=== PATIENT | female | born 1970 | race Caucasian/White ===

== ENCOUNTER → 2023-05-25 | Outpatient (CLI) | payer BC ==
--- NOTE | 2023-06-21 11:18 | MM ---
EXAM: MG 3D screening mammo w/cad DATE OF EXAM: 05/25/2023 8:10 AM COMPARISON STUDIES: 12/12/2016 Bilateral Screening Mammogram, [place]. PATIENT HISTORY: Female, 52 years old with history of Z12.31 SCREENING MAMMO; , Menarche at age 14. First Full-Term at age 28. Hysterectomy at age 39. Patient has history of breast feeding. , RISK CALCULATION: Sheila 5 year model risk: 1.1%. NCI Lifetime model risk: 9.7%. TISSUE DENSITY: Scattered fibroglandular densities FINDINGS: There is no suspicious group of microcalcifications or new suspicious mass in either breast. ASSESSMENT: 1 - Negative RECOMMENDATION: 1. Screening Mammogram Bilateral in 1 Year . COMMENTS: [facility] will attempt to contact patient to return for supplemental views and ultrasound if indicated. Patient should continue monthly self-breast exams. A clinical breast exam by your physician is recommended on an annual basis. This exam should not preclude additional follow-up of suspicious palpable abnormalities. Note on Sheila scores and lifetime risk: 1. A Sheila score greater than 3% is considered moderate risk. If this is the case, consider specialist referral to assess eligibility for a risk reducing agent. 2. If overall lifetime risk for the development of breast cancer is 20% or higher, the patient may qualify for future screening with alternating mammogram and breast MRI. CHARLES
== END | disposition home or self-care (01) ==
LOC: RADMAMWWP 07:55
PROVIDERS: ATTEND Nurse Practitioner Women's Health
DX: Z12.31 Encounter for screening mammogram for malignant neoplasm of breast (principal)
CPT/HCPCS: 77063; 77067

== ENCOUNTER → 2024-12-20 | Outpatient (CLI) | payer OTHER ==
[2024-12-21 02:54] LABS: Basophils # (A) 0.07 X 10*3/uL (0.00-0.10); Basophils % (A) 0.8 %; Eosinophils # (A) 0.17 X 10*3/uL (0.04-0.35); Eosinophils % (A) 1.8 %; HCT 45.2 % (37.2-46.3); HGB 14.8 g/dL (12.0-15.0); MCH 30.6 pg (27.0-32.0); MCHC 32.7 g/dL (32.0-37.0); MCV 93.4 FL (80.0-97.0); Mean Platelet Volume 10.8 FL (9.5-12.2); Monocytes % (A) 7.5 %; NRBC Per 100 WBC 0 X 10*3/uL (0.00-0.01); Neutrophils # (A) 5.55 X 10*3/uL (1.80-7.70); Neutrophils % (A) 59.6 %; Platelet Count 278 X 10*3/uL (140-440); RBC 4.84 X 10*6/uL (4.10-5.20); RDW 14.1 % (11.5-14.5); WBC 9.32 X 10*3/uL (4.50-10.00)
[2024-12-21 02:56] LABS: BUN/Creat Ratio 20.44 Ratio (12.00-20.00); Blood Urea Nitrogen 18.4 mg/dL (9.0-27.0); Calcium 9.3 mg/dL (8.7-10.3); Chloride 103 mmol/L (96-109); Glucose 90 mg/dL (70-110); Potassium 4.8 mmol/L (3.5-5.5); Sodium 136 mmol/L (135-145)
== END | disposition home or self-care (01) ==
LOC: LABWHC1 15:53
PROVIDERS: ATTEND Urology
DX: Z01.812 Encounter for preprocedural laboratory examination (principal)
CPT/HCPCS: 36415; 80048; 85025; 87086

== ENCOUNTER → 2025-01-16 | Outpatient (CLI) | payer OTHER ==
--- NOTE | 2025-01-16 12:17 | MM ---
Reason for Exam: Screening (asymptomatic). Last mammogram was performed 1 year(s) and 7 month(s) ago. Patient History: Menarche at age 14. First Full-Term at age 28. Hysterectomy at age 39. Patient has history of breast feeding. Patient used Hormonal Contraceptives for 10 years. Risk Values: Sheila 5 year model risk: 1.2%. NCI Lifetime model risk: 9.4%. Prior Study Comparison: 12/12/2016 Bilateral Screening Mammogram, [place]. 05/25/2023 Bilateral MG 3D screening mammo w/cad, [facility]. Tissue Density: The breasts are heterogeneously dense, which may obscure small masses. Findings: Analyzed By CAD. There is no suspicious group of microcalcifications or new suspicious mass in either breast. Stable chronic lymph node in the right breast. Overall Assessment: Benign, BI-RAD 2 Management: Screening Mammogram of both breasts in 1 year. . Patient should continue monthly self-breast exams. A clinical breast exam by your physician is recommended on an annual basis. This exam should not preclude additional follow-up of suspicious palpable abnormalities. Note on Sheila scores and lifetime risk: 1. A Sheila score greater than 3% is considered moderate risk. If this is the case, consider specialist referral to assess eligibility for a risk reducing agent. 2. If overall lifetime risk for the development of breast cancer is 20% or higher, the patient may qualify for future screening with alternating mammogram and breast MRI. [facility], , 01/16/2025 12:14 PM. Electronically signed and approved by: Erick Velasquez M.D. Radiolog[facility]
== END | disposition home or self-care (01) ==
LOC: RADMAMWWP 11:54
PROVIDERS: ATTEND Obstetrics & Gynecology
DX: Z12.31 Encounter for screening mammogram for malignant neoplasm of breast (principal); R92.333 Mammographic heterogeneous density, bilateral breasts; Z92.0 Personal history of contraception
CPT/HCPCS: 77063; 77067

== ENCOUNTER → 2025-01-22 | Outpatient (CLI) | payer OTHER ==
[2025-01-22 18:41] LABS: Basophils # (A) 0.06 X 10*3/uL (0.00-0.10); Basophils % (A) 0.7 %; Eosinophils # (A) 0.14 X 10*3/uL (0.04-0.35); Eosinophils % (A) 1.7 %; HCT 46.2 % (37.2-46.3); HGB 14.7 g/dL (12.0-15.0); Lymphocytes # (A) 2.36 X 10*3/uL (0.90-5.00); Lymphocytes % (A) 29.1 %; MCH 30.4 pg (27.0-32.0); MCHC 31.8 g/dL (32.0-37.0); MCV 95.5 FL (80.0-97.0); Mean Platelet Volume 10.5 FL (9.5-12.2); Monocytes # (A) 0.41 X 10*3/uL (0.20-1.00); Monocytes % (A) 5.1 %; NRBC Per 100 WBC 0 X 10*3/uL (0.00-0.01); Neutrophils # (A) 5.11 X 10*3/uL (1.80-7.70); Platelet Count 295 X 10*3/uL (140-440); RBC 4.84 X 10*6/uL (4.10-5.20); RDW 13.4 % (11.5-14.5); WBC 8.11 X 10*3/uL (4.50-10.00)
[2025-01-22 19:06] LABS: % Iron Saturation 27.25 (12.00-45.00); ALT 14 U/L (8-44); AST 18 U/L (13-35); Albumin 4.2 g/dL (3.8-4.9); Albumin/Globulin Ratio 1.91 Ratio (1.60-3.17); Alkaline Phosphatase 93 U/L (41-126); BUN/Creat Ratio 12.62 Ratio (12.00-20.00); Bilirubin, Conjugated <0.20 mg/dL (0.20-0.40); Blood Urea Nitrogen 10.1 mg/dL (9.0-27.0); Calcium 9.4 mg/dL (8.7-10.3); Carbon Dioxide 23.5 mmol/L (21.6-31.8); Chloride 103 mmol/L (96-109); Globulin 2.2 g/dL (1.6-3.3); Glucose 176 mg/dL (70-110); Iron 100 UG/DL (50-170); Potassium 4.3 mmol/L (3.5-5.5); Sodium 136 mmol/L (135-145); Total Bilirubin <0.2 mg/dL (0.3-1.2); Total Iron Binding Capacity 367 UG/DL (228-460); Total Protein 6.4 g/dL (6.2-8.2)
== END | disposition home or self-care (01) ==
LOC: LABWHC1 14:10
PROVIDERS: ATTEND Internal Medicine Gastroenterology
DX: K51.80 Other ulcerative colitis without complications (principal)
CPT/HCPCS: 36415; 80053; 82248; 82728; 83540; 83550; 85025